=== PATIENT | female | born 1945 | race Caucasian/White ===

== ENCOUNTER 2021-10-19 06:20 | Emergency (ER) | payer OTHER ==
[~2021-10-19] VITALS: Ht 162.6 cm; Wt 73.5 kg
[2021-10-19] MEDS ORDERED: TRULICITY0.75 MG/0. (06:33)
[2021-10-19] MEDS ORDERED: JARDIANCE10 MG (06:33)
[2021-10-19] MEDS ORDERED: METFORMIN HCL500 M2 (06:33)
[2021-10-19 07:01] LABS: URINE BILIRUBIN NEGATIVE (Negative); URINE BLOOD NEGATIVE (Negative); URINE CLARITY CLEAR; URINE COLOR YELLOW; URINE GLUCOSE-RANDOM* 3+ (Negative); URINE KETONES NEGATIVE (Negative); URINE LEUKOCYTES-REFLEX TRACE (Negative); URINE NITRITE-REFLEX NEGATIVE (Negative); URINE PROTEIN (DIPSTICK) NEGATIVE (Negative); URINE SPECIFIC GRAVITY <= 1.005 (1.005-1.035); URINE UROBILINOGEN 0.2 E.U./dl (0.2-1.0)
[2021-10-19 07:29] LABS: ABSOLUTE NEUTROPHILS 2.9 thou/uL (1.4-8.2); BASOPHILS 0.4 % (0.0-2.0); EOSINOPHILS 1.4 % (0.0-3.0); HEMATOCRIT 41.2 % (37.0-47.0); HEMOGLOBIN 13.3 gm/dL (12.0-15.0); LYMPHOCYTES 18.3 % (24.0-44.0); MCH 27.5 pg (26.0-34.0); MCHC 32.4 g/dL (28.0-37.0); MCV 84.9 fL (80.0-100.0); MONOCYTES 6.5 % (1.0-8.0); PLATELET COUNT 248 thou/uL (150-400); POLYS 73.4 % (36.0-66.0); RBC 4.85 mil/uL (4.20-5.00); WBC 3.9 thou/uL (4.0-11.0)
[2021-10-19 07:37] LABS: CALCIUM 9.2 mg/dL (8.5-10.1); CREATININE 0.7 mg/dL (0.6-1.0); POTASSIUM 3.5 mmol/L (3.5-5.1)
[2021-10-19 07:43] LABS: ALBUMIN 3.7 g/dL (3.4-5.0); TOTAL PROTEIN 7.5 g/dL (6.4-8.2)
[2021-10-19] MEDS ORDERED: DIFLUCAN150 MG PO (10:12)
[2021-10-19] MEDS ORDERED: LIDOCAINE 2%2 %/5 GM TOP (10:12)
[2021-10-19] MEDS ORDERED: HYDROCODON-ACE1 EAC7 PO (10:12)
[2021-10-19 10:32] VITALS: BP 109/50
--- NOTE | 2021-10-21 07:11 | EKG ---
[place] [address] [facility] [place] [address] ELECTROCARDIOGRAM REPORT Name: RENEEXIAO ADAMS [id number] Admission: 10/19/21 Attend Phys: Discharge: 10/19/21 Date of : 47 Report #: [id number] [facility] ED Test Date: 2021-10-19 Test Time: 06:48:42 Pat Name: XIAO DURAN Department: Room: Gender: F [place]: JR : 1945 Requested By: Teddy Yanez Order Number: [id number] MD: Sergio Dee Measurements Intervals [place] Rate: 81 P: 24 LA: 183 QRS: -41 QRSD: 96 T: 52 QT: 398 QTc: 462 Interpretive Statements Sinus rhythm Abnormal R-wave progression, early transition Left ventricular hypertrophy Baseline wander in lead(s) III No previous ECG available for comparison Electronically Signed On 10-21-2021 7:11:27 [employer] by Sergio Dee [email or web address] <ELECTRONICALLY SIGNED> By: Sergio Dee MD, [facility] 10/21/21 [id number] Sergio Dee MD, FACC /EPI
== END 2021-10-19 10:25 | disposition home or self-care (01) ==
LOC: ER 06:20
PROVIDERS: Emergency Medicine
DX: N76.0 Acute vaginitis (principal); R19.00 Intra-abdominal and pelvic swelling, mass and lump, unspecified site; R10.32 Left lower quadrant pain; E11.9 Type 2 diabetes mellitus without complications; Z79.84 Long term (current) use of oral hypoglycemic drugs; Z79.899 Other long term (current) drug therapy; Z88.2 Allergy status to sulfonamides; Z88.4 Allergy status to anesthetic agent